=== PATIENT | female | born 1985 | race Caucasian/White ===

== ENCOUNTER 2019-11-10 12:11 | Emergency (ER) | payer OTHER, SELFPAY ==
[2019-11-10] VITALS (8 sets, daily range): BP systolic 94–121; BP diastolic 56–77; PULSE 73–102; RESP 14–26; TEMP 37.2; O2SAT 91–100
--- NOTE | 2019-11-10 12:27 | DI.RAD.S_ITS ---
PROCEDURE: XR CHEST 2V INDICATIONS: dry cough x 3 days w/ chest pain w/ inspriarion and cough TECHNIQUE: 2 views of the chest were acquired. COMPARISON: None. FINDINGS: Surgical changes and devices: None. Lungs and pleura: Lungs are clear. No pleural effusions or pneumothorax. Mediastinum: Mediastinal contours are normal. Heart size is normal. Bones and chest wall: No suspicious bony abnormalities. Soft tissues appear unremarkable. IMPRESSION: No acute cardiopulmonary process demonstrated radiographically. Dictated by: Dustin Nash M.D. on 11/10/2019 at 13:30 Approved by: Dustin Nash M.D. on 11/10/2019 at 13:30
[2019-11-10] MEDS: ALBUTEROL HFA 200 PUFF/18 GM INH (COVID POS/VENT PTS) 8 PUFF INH (13:01)
[2019-11-10 13:31] LABS: COVID19 -Nasal RAPID Negative (Negative)
--- NOTE | 2019-11-10 20:27 | ED_ITS ---
HPI - URI/Sore Throat <CHARITY Villanueva - Last Filed: 11/10/19 20:32> General Chief Complaint: Upper Respiratory Symptoms Stated Complaint: SOB/Cough/Chest Pain/Headache/Fatigue Time Seen by Provider: 11/10/19 12:27 Source: patient and family Mode of arrival: Ambulatory Limitations: no limitations History of Present Illness HPI Narrative: The patient is a 34-year-old female nonsmoker who presents with her with the chief complaint of general malaise. She states that for 4 days she has had headache, fatigue, dry cough, tightness in her chest with deep breathing. Nonproductive cough. She states that she feels like she is tight when she is breathing. She is from out of town, in [facility]. She has taken ibuprofen prior to arrival. No falls or trauma, no known coronavirus contacts. No trauma. No nausea vomiting or diarrhea. No abdominal pain. Related Data Previous Rx's Medication Instructions Recorded albuterol sulfate 2 puff INHALATION Q4-6H PRN #18 11/10/19 gram benzonatate [Tessalon Perles] 100 mg PO BID-TID PRN #14 cap 11/10/19 promethazine-DM 5 ml PO Q4-6H PRN #100 ml 11/10/19 Review of Systems <CHARITY Villanueva - Last Filed: 11/10/19 20:32> Review of Systems Narrative: GENERAL: See HPI HEENT: Denies sinus pain, ear pain, sore throat, difficulty swallowing, dizziness. RESPIRATORY: See HPI CARDIOVASCULAR: Denies chest pain, palpitations, orthopnea, edema, GASTROINTESTINAL: Denies nausea, vomiting, abdominal pain, diarrhea, constipation, melena. : Denies dysuria, frequency, incontinence, hematuria, urinary retention. MUSCULOSKELETAL: denies weakness, joint pain, or bony pain SKIN: Denies rash, skin lesions, or other NEUROLOGIC: Denies weakness, headache, numbness, change in speech, confusion, seizures, incoordination. PSYCHIATRIC: No concerning psychosocial issues. 12 point review of systems is negative except for those stated above Patient History <CHARITY Villanueva - Last Filed: 11/10/19 20:32> Social History Smoking Status: Never smoker Smoking Status: Never smoker alcohol intake frequency: 0-2 drinks per day Substance Use Type: does not use Exam <CHARITY Villanueva - Last Filed: 11/10/19 20:32> Narrative Exam Narrative: GENERAL: This is a well-nourished, well-developed patient, no acute distress HEAD: Atraumatic. Normocephalic. No temporal or scalp tenderness. EYES: Pupils equal round and reactive. Extraocular motions intact. No scleral icterus. No injection or drainage. ENT: Nose without bleeding, purulent drainage or septal hematoma. Throat without erythema, tonsillar hypertrophy or exudate. Uvula midline. Airway patent. NECK: Trachea midline. No JVD or lymphadenopathy. Supple, nontender, no menin geal signs. CARDIOVASCULAR: Regular rate and rhythm RESPIRATORY: Clear to auscultation. Breath sounds equal bilaterally. No wheezes, rales, or rhonchi. No cough. No increased respiratory effort. No accessory muscle use. GASTROINTESTINAL: Abdomen soft, non-tender, nondistended. No hepato- splenomegaly, or palpable masses. No guarding. Active bowel sounds all 4 quadrants. EXTREMITIES: No clubbing, cyanosis, or edema. No joint tenderness, effusion, or edema noted. BACK: Nontender without deformity or crepitance. No flank tenderness. NEURO: AOx3. SKIN: No rash or erythema. Initial Vital Signs Initial Vital Signs: Vital Signs Pulse Rate 85 11/10/19 12:17 Respiratory Rate 16 11/10/19 12:17 Blood Pressure 121/77 11/10/19 12:17 Pulse Oximetry 100 11/10/19 12:17 <Tiffanie Akins MD - Last Filed: 11/18/19 08:24> Initial Vital Signs Initial Vital Signs: Vital Signs Pulse Rate 85 11/10/19 12:17 Respiratory Rate 16 11/10/19 12:17 Blood Pressure 121/77 11/10/19 12:17 Pulse Oximetry 100 11/10/19 12:17 Scores <CHARITY Villanueva - Last Filed: 11/10/19 20:32> GCS Ng[place] coma scale eye opening: Spontaneous [place] coma scale verbal response: Orientated [place] coma scale motor response: Obey commands [place] coma scale total score: 15 Course <CHARITY Villanueva - Last Filed: 11/10/19 20:32> Orders Ordered: Discontinued Medications Albuterol (Ventolin Hfa (Vent/Covid R/O)) 8 puff INH NOW ONE Stop: 11/10/19 13:01 Last Admin: 11/10/19 13:01 Dose: 8 puff Documented by: NORA Vital Signs Vital signs: Vital Signs - 8 hr 11/10/19 12:30 11/10/19 13:00 11/10/19 13:01 Pulse Rate 82 73 102 H Respiratory Rate 17 22 14 Blood Pressure 111/60 94/56 L Pulse Oximetry 98 97 98 11/10/19 13:46 11/10/19 13:47 11/10/19 14:00 Pulse Rate 93 H 88 87 Respiratory Rate 23 26 H 22 Blood Pressure 99/68 95/63 Pulse Oximetry 91 100 100 <Tiffanie Akins MD - Last Filed: 11/18/19 08:24> Orders Ordered: Discontinued Medications Albuterol (Ventolin Hfa (Vent/Covid R/O)) 8 puff INH NOW ONE Stop: 11/10/19 13:01 Last Admin: 11/10/19 13:01 Dose: 8 puff Documented by: NORA Vital Signs Vital signs: Vital Signs - 8 hr 11/10/19 12:30 11/10/19 13:00 11/10/19 13:01 Pulse Rate 82 73 102 H Respiratory Rate 17 22 14 Blood Pressure 111/60 94/56 L Pulse Oximetry 98 97 98 11/10/19 13:46 11/10/19 13:47 11/10/19 14:00 Pulse Rate 93 H 88 87 Respiratory Rate 23 26 H 22 Blood Pressure 99/68 95/63 Pulse Oximetry 91 100 100 MDM - URI/Sore Throat <CHARITY Villanueva - Last Filed: 11/10/19 20:32> Differential Diagnosis Differential diagnosis: Likely upper respiratory infection, bronchitis and pharyngitis Lab Data Labs: Lab Results 11/10/19 Range/Units 12:20 COVID-19 PCR Negative (Negative) Imaging Data Chest x-ray: Radiologist's Impression: [id number] [address] [place] [id number] XRay Report Signed Patient: Ruth Figueredo LMR#: [id number] : 1985Acct:[id number] Age/Sex: 34 / FDate of Service: 11/10/19 Loc: ED Accession Number: [id number] Procedure: XR chest 2V Ordering Provider: Katerina Glass PROCEDURE: XR CHEST 2V INDICATIONS: dry cough x 3 days w/ chest pain w/ inspriarion and cough TECHNIQUE: 2 views of the chest were acquired. COMPARISON: None. FINDINGS: Surgical changes and devices: None. Lungs and pleura: Lungs are clear. No pleural effusions or pneumothorax. Mediastinum: Mediastinal contours are normal. Heart size is normal. Bones and chest wall: No suspicious bony abnormalities. Soft tissues appear unremarkable. IMPRESSION: No acute cardiopulmonary process demonstrated radiographically. Dictated by: Dustin Nash M.D. on 11/10/2019 at 13:30 Approved by: Dustin Nash M.D. on 11/10/2019 at 13:30 [facility] Narrative Medical decision making narrative: The patient is a 34-year-old female who presents with multiple complaints including dry cough for 3 days. Her chest x- ray has no acute findings. She is in a manic with stable throughout her stay in the emergency department, able to tolerate p.o. food and fluids. She appears well, nontoxic, speaking full sentences. Her coronavirus test comes back negative, though I did discuss at length with her that it is possible it is a false negative or to early in the disease course to test positive she does feel improved after albuterol, states she feels as though she can breathe much better in the tightness in her chest is pond. I did give her prescriptions for cough medicine to help her sleep. Encouraged follow-up with primary care provider in the next few days and rest over the course of the illness. Discussed coming back to the ER for any acute concerns. Patient has no questions or concerns upon discharge and states understanding return precautions as well as follow-up care. <Tiffanie Akins MD - Last Filed: 11/18/19 08:24> Lab Data Labs: Lab Results 11/10/19 Range/Units 12:20 COVID-19 PCR Negative (Negative) Discharge Plan Departure Patient Disposition: Home Clinical Impression: Viral illness, Cough Discharge Date/Time: 11/10/19 14:48 Instructions: DI for Cough -- Adult, DI for Viral Upper Respiratory Infection -- Adult Activity Restrictions/Additional Instructions: Thank you for trusting us with your care today. As discussed, your x-ray came back with no signs of bacterial pneumonia Your coronavirus test came back negative. However I encourage you to follow-up with primary care provider in the next few days. He may benefit from further testing as coronavirus does not always test positive early in illness course. In the meantime I suggest [id number] medication such as NeilMed sinus rinse or Neti pot, Flonase, Sudafed Please act as though you are are contagious at this point time I sent 3 prescriptions to [facility] in [place]. This includes an albuterol inhaler, Tessalon Perles for cough during the day as well as cough syrup for nighttime. Please be aware that the cough syrup can be sedating, do not take it with alcohol or anything else sedating. Do not take and drive. Please come back to the emergency department for any acute concerns. Prescriptions: New benzonatate [Tessalon Perles] 100 mg capsule 100 mg PO BID-TID PRN (Reason: cough) Qty: 14 RF: 0 albuterol sulfate 90 mcg/actuation HFA aerosol inhaler 2 puff INHALATION Q4-6H PRN (Reason: shortness of breath or wheezing) Qty: 18 RF: 0 promethazine-DM 6.25-15 mg/5 mL syrup 5 ml PO Q4-6H PRN (Reason: cough) Qty: 100 RF: 0 <Tiffanie Akins MD - Last Filed: 11/18/19 08:24> Cosign [facility] Attestation: I was immediately available in the department for consultation throughout this patient's visit. I agree with documentation as above. Tiffanie Akins MD
== END 2019-11-10 14:48 | disposition home or self-care (01) ==
PROVIDERS: Emergency Provider Nurse Practitioner Family
DX: B34.9 Viral infection, unspecified (principal); R05 Cough; R07.9 Chest pain, unspecified; R06.02 Shortness of breath
CPT/HCPCS: 71046; 87635; 94640; 99283